=== PATIENT | female | born 1985 | race Caucasian/White ===

== ENCOUNTER 2023-02-16 17:02 | Emergency (ER) | payer BC ==
[2023-02-16] MEDS ORDERED: Ondansetron PF 4 MG/2 ML Vial ONE (17:32)
[2023-02-16 17:36] LABS: Bilirubin Small (Negative); Blood, Urine Negative (Negative); Clarity Cloudy (Clear); Glucose, Urine (Dipstick) Negative (Negative); Ketone, Urine Negative (Negative); Leukocyte Trace (Negative); Nitrite Negative (Negative); Protein, Urine (Dipstick) 100 mg/dL (Neg-Trace)
[2023-02-16 17:38] LABS: Pregnancy Test - Urine (BHCG) Negative (Negative); Pregu Control Background? CLEAR/WHITE (CLR/WHITE); Pregu Control Bar Appear? YES (CONTROL BAR)
[2023-02-16 17:49] LABS: CAUTI Indications for Culture Dysuria,urgency,freq; RBC/HPF None Seen HPF (0-3)
[2023-02-16 17:50] LABS: Bacteria/HPF 2+ HPF (None Seen); Mucous/LPF 1+ LPF (<2+); Yeast-Budding Rare HPF (None Seen)
[2023-02-16 17:51] LABS: Urine Culture Reflex No No
[2023-02-16] MEDS ORDERED: Nitrofurantoin Monohyd/M-Cryst 100 MG CAP ONE (17:58)
[2023-02-16] MEDS ORDERED: Ketorolac Tromethamine 30 MG/ML VIAL ONE (18:36)
== END 2023-02-16 18:47 | disposition home or self-care (01) ==
LOC: BURERS 17:02
DX: N39.0 Urinary tract infection, site not specified (principal); I10 Essential (primary) hypertension
CPT/HCPCS: 81001; 81025; 96374; 96375; J1885; J2405